=== PATIENT | male | born 1950 | race Caucasian/White ===

== ENCOUNTER 2021-01-20 07:49 | Day surgery (SDC) | payer MEDICARE, OTHER, SELFPAY ==
[2021-01-14 12:26] VITALS: BMI 29.1
--- NOTE | 2021-01-17 10:22 | P.CONAN_ITS ---
Documented by User: Sangeeta Hernandez NP 01/17/21 10:22 HPI - Anesthesia Eval Consult details Narrative: 70yo M for Colonoscopy [facility] Past Medical History Medical History Anxiety BPH (benign prostatic hyperplasia) Elevated cholesterol History of diverticulitis Surgical History Surgical History History of excision of pilonidal cyst Hx of cholecystectomy Hx of colonoscopy Hx of left inguinal hernia repair Hx of tonsillectomy Hx of vasectomy Social History Social History Patient Tobacco Use Status: Former Tobacco user Use of substances other than those prescribed or required for medical reasons: No Are you DNR?: No Advance Directives: No Advance Directives Information Provided: Yes Meds Allergies Allergy/AdvReac Type Severity Reaction Status Date / Time simvastatin [SIMVASTATIN] Allergy Mild GI PAIN, Verified 01/20/21 08:21 stomach upset Home Medications Medication Instructions Recorded Confirmed Last Taken Type Calcium + D 01/14/21 Unknown History doxazosin 2 mg tablet 2 mg PO DAILY 01/14/21 01/14/21 Unknown History escitalopram oxalate 10 mg tablet 10 mg PO DAILY 01/14/21 01/14/21 Unknown History (Lexapro) rosuvastatin 10 mg tablet (Crestor) 10 mg PO DAILY 01/14/21 01/14/21 Unknown History Exam Exam Date and Time: January 17, 2021 1022 Height,Weight and Vital Signs: Height 6 ft 1 in Weight 100.244 kg Assessment and Plan Assessment Anesthesia Assessment: Chart Reviewed Documented by User: Leticia Mccallum MD 01/20/21 08:36 [facility] Past Medical History Medical History Anxiety BPH (benign prostatic hyperplasia) Elevated cholesterol History of diverticulitis Family History Family history of problems with anesthesia: No Surgical History Surgical History History of excision of pilonidal cyst Hx of cholecystectomy Hx of colonoscopy Hx of left inguinal hernia repair Hx of tonsillectomy Hx of vasectomy History of Problems with Anesthesia: No Social History Social History Patient Tobacco Use Status: Former Tobacco user Use of substances other than those prescribed or required for medical reasons: No Are you DNR?: No Advance Directives: No Advance Directives Information Provided: Yes Meds Allergies Allergy/AdvReac Type Severity Reaction Status Date / Time simvastatin [SIMVASTATIN] Allergy Mild GI PAIN, Verified 01/20/21 08:21 stomach upset Home Medications Medication Instructions Recorded Confirmed Last Taken Type Calcium + D 01/14/21 Unknown History doxazosin 2 mg tablet 2 mg PO DAILY 01/14/21 01/14/21 Unknown History escitalopram oxalate 10 mg tablet 10 mg PO DAILY 01/14/21 01/14/21 Unknown History (Lexapro) rosuvastatin 10 mg tablet (Crestor) 10 mg PO DAILY 01/14/21 01/14/21 Unknown History Exam Airway Mallampati Class: III (Narrow oropharynx and palate, overlapping dentition) TM Dist: >3cm Neck ROM: Full Loose/Missing/Broken Teeth: No Heart: RRR Lungs: CTAB Assessment and Plan Assessment Anesthesia Assessment: Anesthesia Plan Discussed Final Anesthetic Review Family History of Problems with Anesthesia: No History of Problems with Anesthesia: No NPO: Yes ASA Class: II Final Preanesthetic Review: No Changes in Pt Med Stat, Meds/Allgs Chart Reviewed, Consent Obtained/Reviewed and Anes Risks/Benef Reviewed Patient Risk: Low Procedure Risk: Low Assessment/Block/Sedation in SS: Assess/Block/Sedation-SS Anesthetic Plan Anesthetic Plan: MAC: Disposition: Standard PACU
[2021-01-20 07:59] VITALS: BP 159/72; PULSE 89; RESP 16; TEMP 36.1; O2SAT 97; BMI 29.7
[2021-01-20] MEDS: Lactated Ringers 1,000 ML 100 ML IVCONT (08:22)
[2021-01-20 10:08] VITALS: BP 106/53; PULSE 56; RESP 16; TEMP 36.1; O2SAT 96
--- NOTE | 2021-01-20 10:10 | P.BOP_ITS ---
Brief Operative Note Date of Service: 01/20/21 Pre-op diagnosis: Screening Post-op diagnosis: other (Colon polyps) Procedure: Colonoscopy to the cecum and TI with bx/removal of polyps Surgeon: Carlos Woods Anesthesia: MAC Was an [employer] Counselor used for this Procedure?: No Estimated blood loss (mL): 3.0 Pathology: other (A. Cecal polyps) Condition: stable Disposition: PACU
[2021-01-20 10:26] VITALS: BP 139/68; PULSE 59; RESP 18; TEMP 36.1; O2SAT 96
--- NOTE | 2021-01-20 10:37 | OP_ITS ---
SURGEON: Carlos Woods MD INDICATIONS: The patient presents for evaluation of colorectal cancer screening and personal history of tubular adenoma of the colon. Full consent has been obtained from him for this, including risks of bleeding and perforation. PREOPERATIVE DIAGNOSIS: POSTOPERATIVE DIAGNOSIS: PROCEDURE PERFORMED: Colonoscopy to cecum and terminal ileum with biopsy and removal of polyps. ESTIMATED BLOOD LOSS: COMPLICATIONS: ANESTHESIA: Monitored anesthesia care. ASSISTANTS: SPECIMENS: PREOPERATIVE DIAGNOSES: Colorectal cancer screening, personal history of tubular adenoma of the colon, family history of colon cancer. POSTOPERATIVE DIAGNOSES: Colorectal cancer screening, personal history of tubular adenoma of the colon, family history of colon cancer, small colon polyps, diverticulosis, and internal hemorrhoids. DESCRIPTION OF PROCEDURE: The patient was placed in the left lateral decubitus position. The digital rectal exam revealed no abnormalities. The Olympus video pediatric colonoscope was entered into the rectum and advanced easily to the cecum. Once in the cecum, I did identify cecal pouch with appendiceal orifice and a normal-appearing ileocecal valve. The terminal ileum was cannulated and appeared normal. The scope was withdrawn back in the colon. The entire cecum was well visualized. In the cecum, were 2 flat less than 5 mm polyps, which were each biopsied and completely removed with cold biopsy forceps. The remainder of the cecum appeared normal. The scope was slowly withdrawn assessing all mucosal surfaces carefully. Preparation was excellent. I did not visualize any other polyps, colitis, nor angiodysplasia. There was a relatively diffuse diverticulosis extending from the ascending colon to the sigmoid colon. In the rectum, scope was retroflexed visualizing internal hemorrhoids, but no other pathology. The rectal mucosa appeared normal. The scope was straightened out and withdrawn from the patient. He tolerated the procedure well and was returned to the recovery area in stable condition. IMPRESSION: 1. Small colon polyps, status post biopsy and removal. 2. Relatively diffuse diverticulosis. 3. Internal hemorrhoids. PLAN: The results of the biopsy will be checked. I would recommend a repeat colonoscopy in 5 years for further surveillance. He will otherwise see me on a p.r.n. basis. MD RASHIDA Cabral/CYNDIE / [id number]
== END 2021-01-20 11:23 | disposition home or self-care (01) ==
PROVIDERS: PCP Hospitalist; Visit Provider Internal Medicine
PROC: 0DJD8ZZ Inspection of Lower Intestinal Tract, Via Natural or Artificial Opening Endoscopic (ICD-10-PCS; CPT 45378; principal; 2021-01-20 09:00)
DX: Z12.11 Encounter for screening for malignant neoplasm of colon (principal); Z86.010 Personal history of colon polyps; Z80.0 Family history of malignant neoplasm of digestive organs; D12.0 Benign neoplasm of cecum; K57.30 Diverticulosis of large intestine without perforation or abscess without bleeding; K64.8 Other hemorrhoids; Z79.899 Other long term (current) drug therapy; Z88.8 Allergy status to other drugs, medicaments and biological substances; Z87.891 Personal history of nicotine dependence
CPT/HCPCS: 45380; 88305